=== PATIENT | male | born 1945 | race Caucasian/White ===

== ENCOUNTER 2016-10-18 08:41 | Day surgery (SDC) | payer MEDICARE, OTHER ==
--- NOTE | ~2016-10-18 | EGD ---
EGD REPORT [facility] [address] [address] NAME: BRODERICK FRAZIER : [birth year] [place] [facility] [place] [id number] AGE: 70 ADM/REG DATE : 10/18/16 MR#: [id number] REPORT SERV DATE: 10/18/16 DICTATED BY: RONNIE MILES DATE: 10/18/16 REPORT STATUS : Draft TRANSCRIBED BY: [employer] DATE: 10/18/16 [facility] Patient Name: Broderick Frazier Date of : 1945 Attending MD: RONNIE MILES MD Procedure Date No Time: 10/18/2016 Procedure: Colonoscopy Indications: Generalized abdominal pain, Constipation Referring MD: CHANDLER SNEED Medicines: See the Anesthesia note for documentation of the administered medications Complications: No immediate complications. Procedure: Pre-Anesthesia Assessment: - ASA Grade Assessment: III - A patient with severe systemic disease. After I obtained informed consent, the scope was passed under direct vision. Throughout the procedure, the patient's blood pressure, pulse, and oxygen saturations were monitored continuously. The PCF [id number] was introduced through the anus and advanced to the terminal ileum, with identification of the appendiceal orifice and IC valve. The colonoscopy was performed without difficulty. The patient tolerated the procedure well. The quality of the bowel preparation was adequate. Findings: The perianal and digital rectal examinations were normal. Diverticula were found in the sigmoid colon and in the descending colon. Internal hemorrhoids were found during retroflexion and were large. A sessile polyp was found in the ascending colon. The polyp was small in size. The polyp was removed with a cold biopsy forceps. Resection and retrieval were complete. Impression: - Diverticulosis in the sigmoid colon and in the descending colon. - Internal hemorrhoids. - One small polyp in the ascending colon. Resected and retrieved. Recommendation: - Patient has a contact number available for emergencies. The signs and symptoms of potential delayed complications were discussed with the patient. Return to normal activities tomorrow. Written discharge instructions were provided to the patient. - Regular diet. EGD REPORT [address] [address] NAME: BRODERICK FRAZIER : [birth year] [place] [facility] [place] [id number] AGE: 70 ADM/REG DATE : 10/18/16 MR#: [id number] REPORT SERV DATE: 10/18/16 DICTATED BY: RONNIE MILES DATE: 10/18/16 REPORT STATUS : Draft TRANSCRIBED BY: [employer] DATE: 10/18/16 - Continue present medications. - Repeat colonoscopy for surveillance based on pathology results. - FOR YOUR BIOPSY RESULTS: Please go to [email or web address] and register to receive your results via the portal. Your biopsy results will be posted there in about 7 to 10 days. IF you do not see result in 10 days, call office. - Follow up with Dr Miles or his nurse practitioner in 6 weeks Procedure Code(s): --- Professional --- 04621, Colonoscopy, flexible, proximal to splenic flexure; with biopsy, single or multiple Diagnosis Code(s): --- Professional --- K64.8, Other hemorrhoids K57.30, Diverticulosis of large intestine without perforation or abscess without bleeding D12.2, Benign neoplasm of ascending colon R10.84, Generalized abdominal pain K59.00, Constipation, unspecified CPT copyright 2013 [employer]. All rights reserved. The codes documented in this report are preliminary and upon measurement superintendent review may be revised to meet current compliance requirements. Ronnie Miles MD RONNIE MILES MD 10/18/2016 10:30 AM This report has been signed electronically. Number of Addenda: 0 Note Initiated On: 10/18/2016 10:04 AM Scope Withdrawal Time 0 hours 10 minutes 31 seconds [address] [id number]
[~2016-10-18 08:41] MED LIST: ASAB PO; CRESTOR20 MG PO; FISH OIL1200 MG PO; LOTE20 PO; PLAVIX PO; PRILO PO; TOPXL50 PO; TYLENOL SIN1 OR
== END 2016-10-18 23:59 | disposition home or self-care (01) ==
LOC: DMU 08:41
PROVIDERS: Internal Medicine Gastroenterology
PROC: 0DBK8ZZ Excision of Ascending Colon, Via Natural or Artificial Opening Endoscopic (ICD-10-PCS; principal; 2016-10-18 11:00)
DX: D12.2 Benign neoplasm of ascending colon (principal); K64.8 Other hemorrhoids; K57.30 Diverticulosis of large intestine without perforation or abscess without bleeding; R10.84 Generalized abdominal pain; K59.00 Constipation, unspecified; J44.9 Chronic obstructive pulmonary disease, unspecified; M79.7 Fibromyalgia; M19.90 Unspecified osteoarthritis, unspecified site; I10 Essential (primary) hypertension; I25.10 Atherosclerotic heart disease of native coronary artery without angina pectoris; F17.210 Nicotine dependence, cigarettes, uncomplicated; E78.00 Pure hypercholesterolemia, unspecified; Z90.49 Acquired absence of other specified parts of digestive tract; Z95.1 Presence of aortocoronary bypass graft; Z86.718 Personal history of other venous thrombosis and embolism; Z98.41 Cataract extraction status, right eye; Z98.42 Cataract extraction status, left eye; Z96.1 Presence of intraocular lens; Z95.5 Presence of coronary angioplasty implant and graft; Z79.82 Long term (current) use of aspirin; Z79.899 Other long term (current) drug therapy
CPT/HCPCS: 88305